=== PATIENT | male | born 1955 | race African-American/Black ===

== ENCOUNTER 2016-06-01 07:26 | Emergency (ER) | payer MEDICAID ==
[~2016-06-01] VITALS: Ht 175.3 cm; Wt 132.0 kg
[~2016-06-01 07:26] MED LIST: VICODIN
[2016-06-01 08:05] VITALS: BP 106/68
[2016-06-01 09:01] LABS: HEMATOCRIT. 30.2 % (42.0-52.0); HEMOGLOBIN. 9.5 g/dL (14.0-18.0); MEAN CORPUSCULAR HGB CONC 31.3 g/dL (31.0-37.0); MEAN CORPUSCULAR VOLUME 83.2 fL (80.0-94.0); MEAN PLATELET VOLUME 6.7 fl (7.4-10.4); PLATELET 370 x1000/uL (130-400); RED BLOOD CELL COUNT 3.64 mill/uL (4.7-6.1); RED CELL DISTRIBUTION WIDTH 17.2 % (11.6-14.6)
[2016-06-01 09:03] LABS: DIFFERENTIAL COMMENT 1
[2016-06-01 09:05] LABS: INR 1.1; PARTIAL THROMBOPLASTIN TIME 30.5 sec (24.0-34.0); PROTHROMBIN TIME 11.2 sec
[2016-06-01 09:47] LABS: PLATELET ESTIMATE NORMAL
== END 2016-06-01 11:12 | disposition home or self-care (01) ==
LOC: ER 08:04
DX: Z46.82 Encounter for fitting and adjustment of non-vascular catheter (principal); I12.9 Hypertensive chronic kidney disease with stage 1 through stage 4 chronic kidney disease, or unspecified chronic kidney disease; N18.9 Chronic kidney disease, unspecified; F17.210 Nicotine dependence, cigarettes, uncomplicated; Z99.2 Dependence on renal dialysis
CPT/HCPCS: 36415; 36589; 85025; 85610; 85730; 87070; 99285; Z7610

== ENCOUNTER 2016-10-11 10:55 | Emergency (ER) | payer MEDICAID ==
[~2016-10-11] VITALS: Ht 175.3 cm; Wt 132.0 kg
[2016-10-11 13:00] VITALS: BP 113/70
[2016-10-11] MEDS ORDERED: KETOROLAC 60MG/2ML VIAL IM ONE (14:00)
== END 2016-10-11 15:40 | disposition home or self-care (01) ==
LOC: ER 10:55
DX: M25.561 Pain in right knee (principal); M17.10 Unilateral primary osteoarthritis, unspecified knee; F17.210 Nicotine dependence, cigarettes, uncomplicated; I12.0 Hypertensive chronic kidney disease with stage 5 chronic kidney disease or end stage renal disease; N18.6 End stage renal disease; Z99.2 Dependence on renal dialysis
CPT/HCPCS: 96372; 99283; J1885; L1830; Z7610

== ENCOUNTER 2018-09-10 09:50 | Emergency (ER) | payer MEDICAID ==
[~2018-09-10] VITALS: Ht 175.3 cm; Wt 129.0 kg
[2018-09-10] MEDS ORDERED: DEXAMETHASONE 10 MG/ML VIAL IM ONE (11:45)
[2018-09-10] MEDS ORDERED: KETOROLAC 60MG/2ML VIAL IM ONE (11:45)
[2018-09-10 12:15] VITALS: BP 148/85
== END 2018-09-10 12:20 | disposition home or self-care (01) ==
LOC: ER 09:50
DX: G89.29 Other chronic pain (principal); M54.40 Lumbago with sciatica, unspecified side
CPT/HCPCS: 96372; 99283; J1100; J1885

== ENCOUNTER 2018-10-13 08:44 | Emergency (ER) | payer MEDICAID ==
[~2018-10-13] VITALS: Ht 175.3 cm; Wt 130.0 kg
[2018-10-13] MEDS ORDERED: ACETAMINOPHEN 325MG TABLET PO ONE (09:45)
[2018-10-13 12:03] VITALS: BP 140/81
== END 2018-10-13 12:03 | disposition home or self-care (01) ==
LOC: ER 08:44
DX: S20.212A Contusion of left front wall of thorax, initial encounter (principal); S60.221A Contusion of right hand, initial encounter; S80.02XA Contusion of left knee, initial encounter; S80.01XA Contusion of right knee, initial encounter; S60.211A Contusion of right wrist, initial encounter; Y04.2XXA Assault by strike against or bumped into by another person, initial encounter; Y93.89 Activity, other specified; Y92.89 Other specified places as the place of occurrence of the external cause
CPT/HCPCS: 71101; 73110; 73130; 73562; 99283

== ENCOUNTER 2019-01-18 19:11 | Emergency (ER) | payer MEDICAID ==
[~2019-01-18] VITALS: Ht 182.9 cm; Wt 113.0 kg
[2019-01-18 19:56] VITALS: BP 147/88
== END 2019-01-18 19:57 | disposition home or self-care (01) ==
LOC: ER 19:30
DX: F19.10 Other psychoactive substance abuse, uncomplicated (principal); E11.9 Type 2 diabetes mellitus without complications; I10 Essential (primary) hypertension
CPT/HCPCS: 99283

== ENCOUNTER 2019-03-29 09:44 | Emergency (ER) | payer MEDICAID ==
[~2019-03-29] VITALS: Ht 165.1 cm; Wt 89.0 kg
[2019-03-29] MEDS ORDERED: IBUPROFEN 600MG TABLET PO ONE (11:45)
[2019-03-29] MEDS ORDERED: HYDROCODONE/ACETAMINOPHEN 5/325MG TABLET PO ONE (11:45)
[2019-03-29 15:08] VITALS: BP 125/86
== END 2019-03-29 15:12 | disposition home or self-care (01) ==
LOC: ER 09:44
DX: S62.392A Other fracture of third metacarpal bone, right hand, initial encounter for closed fracture (principal); W01.0XXA Fall on same level from slipping, tripping and stumbling without subsequent striking against object, initial encounter; Y93.89 Activity, other specified; Y92.89 Other specified places as the place of occurrence of the external cause; Y99.8 Other external cause status; E11.9 Type 2 diabetes mellitus without complications; I10 Essential (primary) hypertension
CPT/HCPCS: 73110; 73130; 99283